=== PATIENT | male | born 1970 | race Caucasian/White ===

== ENCOUNTER → 2020-09-21 | Outpatient (CLI) | payer OTHER | END | disposition home or self-care (01) | LOC: LABWHC1 09:46 | PROVIDERS: ATTEND Student in an Organized Health Care Education/Training Program | DX: Z20.822 Contact with and (suspected) exposure to COVID-19 (principal) | CPT/HCPCS: U0003; U0005 ==

== ENCOUNTER → 2020-09-22 | Outpatient (CLI) | payer OTHER ==
[2020-09-22 09:16] LABS: HCT 49.8 % (39.0-53.0); HGB 16.9 gm/dL (13.0-17.5); MCH 32.4 pg (25.0-35.0); MCHC 33.9 g/dL (31.0-37.0); MCV 95.6 fL (80.0-100.0); Mean Platelet Volume 6.7; Platelet Count 254 k/uL (150-450); RBC 5.21 m/uL (4.30-5.90); RDW 11.8 % (11.5-15.5); WBC 6.3 k/uL (3.8-10.6)
== END | disposition home or self-care (01) ==
LOC: LABPAT 07:49
PROVIDERS: ATTEND Student in an Organized Health Care Education/Training Program
DX: Z01.812 Encounter for preprocedural laboratory examination (principal)
CPT/HCPCS: 36415; 85027; 86850; 86900; 86901; 93005

== ENCOUNTER 2020-09-28 09:35 | Day surgery (SDC) | payer OTHER ==
[2020-09-21 15:11] VITALS: BMI 35.2
[~2020-09-28 09:35] MED LIST: DEXAMETHASONE SOD PHOSPHATE 4 MG/ML 1 ML VIAL IV ONE; HEPARIN SODIUM,PORCINE 5,000 UNIT/ML 1 ML VIAL SQ PRN; LACTATED RINGERS 1,000 ML IV SCH; LIDOCAINE 1% (10MG/ML) FOR IV START INTRADERMA PRN; ONDANSETRON 4 MG/2 ML VIAL IVP ONE
[2020-09-28] MEDS ORDERED: fentaNYL (PF) 50 MCG/ML 2 ML AMP IV ONE (10:55)
[2020-09-28] MEDS ORDERED: MIDAZOLAM 2 MG/2 ML VIAL IV ONE (10:55)
--- NOTE | 2020-09-28 11:18 | P.ANPRN ---
Procedure Note - Anesthesia - Nerve Block Performed Bilateral Erector Spinae Single Time Out Performed: Yes ([id number]) Date of Procedure: 09/28/20 Procedure Start Time: 10:55 Procedure Stop Time: 11:06 Location of Patient: PreOp Indication: Acute Post-Operative Pain, Requested by Surgeon Sedation Type: Sedate with meaningful contact maintained Preparation: Sterile Prep Position: Prone Catheter: None Needle Types: Pajunk Needle Gauge: 21 Ultrasound used to visualize needle placement: Yes Ultrasound used to observe medication spread: Yes Injectate: 0.5% Ropivacaine (see comment for volume) (15cc each side + decadron 4mg each side) Blood Aspirated: No Pain Paresthesia on Injection Noted: No Resistance on Injection: Normal Image Stored and Saved: Yes Events: Uneventful and Well Tolerated
[2020-09-28] MEDS ORDERED: GLYCOPYRROLATE 0.2 MG/ML 2 ML VIAL ONE (12:13)
[2020-09-28] MEDS ORDERED: HYDROmorphone (PF) 1 MG/ML ONE (12:13)
[2020-09-28] MEDS ORDERED: DEXAMETHASONE SOD PHOSPHATE 4 MG/ML 1 ML VIAL ONE (12:13)
[2020-09-28] MEDS ORDERED: PHENYLEPHRINE-0.9% NACL SYG 1,000 MCG/10 ML SYRINGE ONE (12:13)
[2020-09-28] MEDS ORDERED: fentaNYL (PF) 50 MCG/ML 2 ML AMP ONE (12:13)
[2020-09-28] MEDS ORDERED: ROPIVACAINE 5 MG/ML 30 ML VIAL ONE (12:13)
[2020-09-28] MEDS ORDERED: ROCURONIUM 10 MG/ML (5 ML VIAL) IV ONE (12:13)
[2020-09-28] MEDS ORDERED: PROPOFOL 10 MG/ML 20 ML VIAL IV ONE (12:13)
[2020-09-28] MEDS ORDERED: NEOSTIGMINE 1 MG/ML 10 ML VIAL ONE (12:13)
[2020-09-28] MEDS ORDERED: LIDOCAINE 1% INJ 10MG/ML (20 ML MDV) ONE (12:13)
[2020-09-28] MEDS ORDERED: SUCCINYLCHOLINE CHLORIDE 100 MG/5 ML SYR IV ONE (12:13)
[2020-09-28] MEDS ORDERED: BUPIVACAIN-EPI 0.5%-1:200,000 30 ML VIAL SQ ONE ×2 (12:38)
[2020-09-28] MEDS ORDERED: LACTATED RINGERS 1,000 ML IV ONE ×2 (12:52→13:55)
[2020-09-28 14:52] VITALS: TEMP 97.2
--- NOTE | 2020-09-28 15:10 | P.OP ---
Date of Procedure: 09/28/20 Preoperative Diagnosis: Right inguinal hernia Postoperative Diagnosis: Same Anesthesia: AYANAA Surgeon: Dony Manuel Estimated Blood Loss (ml): 10 Pathology: other (Hernia contents) Condition: stable Disposition: PACU Description of Procedure: Patient is brought back to the operative suite remained in the supine position underwent general endotracheal anesthesia per Department of anesthesia prepped and draped in usual sterile fashion timeout performed correct patient correct procedure correct site was verified an incision was made just superior to the umbilicus carried down the fascia which was incised and the abdomen was entered in the usual fashion and insufflated. No injuries were noted. 8 mm ports were placed lateral to this on either side. The patient was placed in Trendelenburg and there is a large right sided inguinal hernia noted. The left side which a previously been repaired did not have any sign of recurrence. The robot was docked. The peritoneum was taken down on the right side and dissection was carried to the pubis medially to the psoas posteriorly and laterally. 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 Progrip mesh was placed. The peritoneum was then sutured back in place with 2-0 vlock suture. The large hernia sac was tacked up to the peritoneum during this the cord lipoma was removed with the aid of a Endo Catch bag the needle was removed and the midline fascia was closed with an 0 Vicryl in an interrupted fashion with the aid of a Omi-Mihai suture passer. Abdomen was desufflated and ports removed and the skin was closed with 4-0 Monocryl subcuticular suture. Sterile dressing was applied patient tolerated procedure well no apparent complications Plan - Discharge Summary Discharge Rx Participant: Yes New Discharge Prescriptions: No Action Multivitamins, Thera [Multivitamin (formulary)] 1 tab PO DAILY DULoxetine HCL [Cymbalta] 60 mg PO QAM Discharge Medication List DULoxetine HCL [Cymbalta] 60 mg PO QAM 09/21/20 [History] Multivitamins, Thera [Multivitamin (formulary)] 1 tab PO DAILY 09/21/20 [History]
[2020-09-28] MEDS ORDERED: HYDROcodone/APAP 5-325MG 1 EACH TAB PO ONE (15:57)
[2020-09-28] MEDS ORDERED: HYDROcodone/APAP 5-325MG 1 EACH TAB ONE (15:58)
[2020-09-28 16:11] VITALS: RESP 16
[2020-09-28 16:25] VITALS: BP 128/81; PULSE 90
== END 2020-09-28 16:51 | disposition home or self-care (01) ==
LOC: OR 09:35
PROVIDERS: ATTEND Student in an Organized Health Care Education/Training Program
DX: K40.90 Unilateral inguinal hernia, without obstruction or gangrene, not specified as recurrent (principal); D17.6 Benign lipomatous neoplasm of spermatic cord; K57.90 Diverticulosis of intestine, part unspecified, without perforation or abscess without bleeding; Z82.49 Family history of ischemic heart disease and other diseases of the circulatory system; Z83.3 Family history of diabetes mellitus; Z87.891 Personal history of nicotine dependence; E66.9 Obesity, unspecified; Z68.37 Body mass index [BMI] 37.0-37.9, adult; Z79.899 Other long term (current) drug therapy
CPT/HCPCS: 49650; S2900; 64486; 64999; 86850; 86900; 86901; 88302

== ENCOUNTER → 2021-02-04 | Outpatient (CLI) | payer OTHER ==
--- NOTE | 2021-02-04 22:20 | MR ---
EXAMINATION TYPE: MR cervical spine wo con DATE OF EXAM: 02/04/2021 COMPARISON: None HISTORY: Neck pain into left arm, headaches CONTRAST: Performed utilizing 0 mL intravenous Gadavist gadolinium contrast. TECHNIQUE: Multiplanar multiecho imaging on a 3.0 Jenny magnet is performed through the cervical spin e. FINDINGS: The craniovertebral junction is normal. Vertebral body alignment is normal. C7-T1: No focal disc herniation or significant disc bulge is evident. No spinal canal stenosis or n eural foraminal stenosis is present. Severe left and moderate right foraminal narrowing is present. C6-7: There is a small subligamentous disc herniation at this level with mild anterior thecal sac com pression. No cord contact is evident. No spinal canal stenosis or neural foraminal stenosis is presen t. Severe left and mild right foraminal narrowing is present C5-6: Left paracentral disc bulge is present with moderate anterior thecal sac impression. Some minim al flattening of the cord may be present. However, no cord contact is evident. AP spinal canal stenos is is not present. Left foraminal stenosis is present. Moderate to severe bilateral foraminal stenosi s is present C4-5: There is a moderate-sized central disc herniation extending slightly left paracentral. This is moderate anterior thecal sac compression. Cord contact is evident. Minimal cord deformity may be pres ent. Mild AP spinal canal stenosis is present posterior to the disc herniation. Uncovertebral joint h ypertrophy is contributing to moderate bilateral foraminal stenosis C3-4: Endplate bulging is present greater into the right paracentral to right lateral direction at C3 -4. This is mild anterior thecal sac compression. Mild bilateral foraminal narrowing is present.. C2-3: No focal disc herniation or significant disc bulge is evident. No spinal canal stenosis or dewey ral foraminal stenosis is present. IMPRESSIONS: 1. Central and slightly left paracentral disc herniation C4-5 with cord contact, mild cord deformity, and AP spinal canal stenosis measuring 0.8 cm. 2. Subligamentous disc herniation in the left paracentral region at C5-6 with moderate anterior theca l sac compression may come in close approximation with the spinal cord. Cord contact is not identifie d although some cord flattening may be present. 3. Small subligamentous disc herniation C6-7 without cord contact or spinal canal stenosis. 4. Milder disc bulges may be present with minimal thecal sac compression. 5. Foraminal narrowing due to uncovertebral joint hypertrophy discussed above.
== END | disposition home or self-care (01) ==
LOC: RADMRIMAIN 06:10
PROVIDERS: ATTEND Nurse Practitioner Family
DX: M48.02 Spinal stenosis, cervical region (principal); M50.123 Cervical disc disorder at C6-C7 level with radiculopathy; M47.22 Other spondylosis with radiculopathy, cervical region; M99.71 Connective tissue and disc stenosis of intervertebral foramina of cervical region
CPT/HCPCS: 72141

== ENCOUNTER → 2021-03-08 | Outpatient (CLI) | payer OTHER ==
[2021-03-08 10:48] LABS: Appearance,Urine Clear (Clear); Bilirubin,Urine Negative (Negative); Blood,Urine Negative (Negative); Color,Urine Yellow; Glucose,Urine (UA) Negative (Negative); Ketones,Urine Negative (Negative); Leukocyte Esterase,Urine Negative (Negative); Nitrite,Urine Negative (Negative); PH, Urine 5.5 (5.0-8.0); Protein,Urine Negative (Negative); Specific Gravity,Urine 1.025 (1.001-1.035); Urobilinogen,Urine <2.0 mg/dL (<2.0)
--- NOTE | 2021-03-08 11:09 | XR ---
EXAMINATION TYPE: XR chest 2V DATE OF EXAM: 03/08/2021 COMPARISON: NONE HISTORY: Preoperative neck surgery. History of fractured sternum October 11. TECHNIQUE: Frontal and lateral views of the chest are obtained. FINDINGS: Low lung volumes are present. There is no focal air space opacity, pleural effusion, or pn eumothorax seen. The cardiac silhouette size is mildly enlarged. The osseous structures are intact . IMPRESSION: No acute process.
[2021-03-08 11:10] LABS: INR 0.9 (<1.2); Partial Thromboplastin Time 23.1 sec (22.0-30.0); Prothrombin Time 9.6 sec (9.0-12.0)
[2021-03-08 14:47] LABS: Basophils # (A) 0.05 X 10*3/uL (0.00-0.10); Basophils % (A) 1.1 %; Eosinophils # (A) 0.17 X 10*3/uL (0.04-0.35); Eosinophils % (A) 3.6 %; HCT 48.3 % (39.6-50.0); HGB 16.1 g/dL (13.0-17.0); Lymphocytes # (A) 1.64 X 10*3/uL (0.90-5.00); Lymphocytes % (A) 35.2 %; MCH 31.8 pg (27.0-32.0); MCHC 33.3 g/dL (32.0-37.0); MCV 95.5 fL (80.0-97.0); Mean Platelet Volume 9.8 fL (9.5-12.2); Monocytes # (A) 0.45 X 10*3/uL (0.20-1.00); Monocytes % (A) 9.7 %; Neutrophils # (A) 2.31 X 10*3/uL (1.80-7.70); Neutrophils % (A) 49.5 %; Platelet Count 256 X 10*3/uL (140-440); RBC 5.06 X 10*6/uL (4.40-5.60); RDW 12.3 % (11.5-14.5); WBC 4.66 X 10*3/uL (4.50-10.00)
[2021-03-08 15:56] LABS: African American GFR (CKD) 120.7 (60.0-200.0); Albumin 4.5 g/dL (3.80-4.90); Albumin/Globulin Ratio 1.73 (1.60-3.17); Anion Gap 8.6 mmol/L (4.00-12.00); BUN/Creat Ratio 18.75 Ratio (12.00-20.00); Calcium 9.7 mg/dL (8.7-10.3); Carbon Dioxide 25.4 mmol/L (21.6-31.8); Globulin 2.6 g/dL (1.6-3.3); Non-African American GFR(CKD) 104.2 (60.0-200.0); Potassium 4.4 mmol/L (3.5-5.5); Total Bilirubin 0.4 mg/dL (0.3-1.2); Total Protein 7.1 g/dL (6.2-8.2)
== END | disposition home or self-care (01) ==
LOC: LABWHC1 10:09
PROVIDERS: ATTEND Neurological Surgery
DX: Z01.818 Encounter for other preprocedural examination (principal); M50.10 Cervical disc disorder with radiculopathy, unspecified cervical region; G95.20 Unspecified cord compression; S13.101A Dislocation of unspecified cervical vertebrae, initial encounter; Z87.81 Personal history of (healed) traumatic fracture; X58.XXXA Exposure to other specified factors, initial encounter
CPT/HCPCS: 36415; 71046; 80053; 81003; 85025; 85610; 85730; 87070; 93005

== ENCOUNTER → 2021-07-01 | Outpatient (CLI) | payer OTHER | END | disposition home or self-care (01) | LOC: RADMRIMAIN 07:27 | PROVIDERS: ATTEND Nurse Practitioner Family | DX: Z53.9 Procedure and treatment not carried out, unspecified reason (principal) ==